=== PATIENT | male | born 1960 | race Caucasian/White ===

== ENCOUNTER → 2016-09-18 | Outpatient (CLI) | payer MEDICARE ==
[~2016-09-18] MED LIST: ALDACTONE 25MG25 MG PO; INDERAL LA120 MG PO; METHADONE HYDRO10 MG PO; MS CONTIN60 MG PO; VOLTAREN-XR100 M1 PO
[2016-09-18 14:40] VITALS: BP 122/85
== END ==
LOC: AMSURD 14:06
DX: Z86.39 Personal history of other endocrine, nutritional and metabolic disease (principal); Z12.5 Encounter for screening for malignant neoplasm of prostate; E78.2 Mixed hyperlipidemia

== ENCOUNTER → 2016-10-14 | Outpatient (CLI) | payer MEDICARE ==
[2016-09-18 14:40] VITALS: BP 122/85
== END ==
LOC: LAB 08:34
DX: E29.1 Testicular hypofunction (principal)

== ENCOUNTER → 2017-09-23 | Outpatient (CLI) | payer MEDICARE ==
[2016-09-18 14:40] VITALS: BP 122/85
[2017-09-23 11:42] LABS: EOS # 0.1 (0.04-0.40); EOS % 1.2 % (0.0-4.0); HEMATOCRIT 46.2 % (42.0-52.0); HEMOGLOBIN 15.9 g/dL (13.5-18.0); LYMPH# 2.2 (1.50-4.00); MEAN CELL VOLUME 85 fl (78-100); MEAN CORPUSCULAR HEMOGLOBIN 29 pg (27-31); MEAN CORPUSCULAR HGB CONC 34 g/dL (33-37); MEAN PLATELET VOLUME 9.1 fl (7.4-10.4); MONO # 0.6 (0.20-0.80); NEU # 2.8 (1.40-6.50); PLATELET COUNT 303 K/mm3 (130-400); RED BLOOD COUNT 5.44 M/mm3 (4.20-5.60); RED CELL DISTRIBUTION WIDTH 12.8 % (11.5-14.5); WHITE BLOOD COUNT 5.7 K/mm3 (4.8-10.8)
[2017-09-23 11:54] LABS: ALBUMIN 4.2 g/dL (3.5-5.0); CALCIUM 9.4 mg/dL (8.4-10.2); POTASSIUM 4.5 mmol/L (3.6-5.0); TOTAL BILIRUBIN 0.6 mg/dL (0.2-1.3); TOTAL PROTEIN 7.9 g/dL (6.3-8.2)
[2017-09-23 12:07] LABS: URINE COLOR YELLOW
[2017-09-23 12:08] LABS: URINE APPEARANCE CLEAR; URINE BILIRUBIN NEGATIVE (NEGATIVE); URINE BLOOD TRACE (NEGATIVE); URINE KETONE NEGATIVE (NEGATIVE); URINE NITRATE NEGATIVE (NEGATIVE); URINE PROTEIN(semi-quant) NEGATIVE (NEGATIVE); URINE UROBILINOGEN NORMAL (NORMAL); URINE WBC 0-1 /hpf (0-3)
[2017-09-23 12:48] LABS: ERYTHROCYTE SEDIMENTATION RATE 1 mm/hr (0-20)
[2017-09-23 12:59] LABS: URINE LEUKOCYTE ESTERASE NEGATIVE (NEGATIVE)
[2017-09-24 03:44] LABS: TESTOSTERONE 412 ng/dL (221-716)
== END ==
LOC: LAB 10:53
PROVIDERS: Internal Medicine
DX: Z86.39 Personal history of other endocrine, nutritional and metabolic disease (principal); E78.2 Mixed hyperlipidemia; Z12.5 Encounter for screening for malignant neoplasm of prostate

== ENCOUNTER → 2018-09-28 | Outpatient (CLI) | payer MEDICARE ==
[2016-09-18 14:40] VITALS: BP 122/85
[2018-09-28 08:36] LABS: URINE WBC 0 /hpf (0-3)
[2018-09-28 08:58] LABS: HEMATOCRIT 45.2 % (42.0-52.0); HEMOGLOBIN 15.3 g/dL (13.5-18.0); MEAN CELL VOLUME 87 fl (78-100); MEAN CORPUSCULAR HEMOGLOBIN 30 pg (27-31); MEAN CORPUSCULAR HGB CONC 34 g/dL (33-37); MEAN PLATELET VOLUME 8.8 fl (7.4-10.4); PLATELET COUNT 284 K/mm3 (130-400); RED BLOOD COUNT 5.18 M/mm3 (4.20-5.60); RED CELL DISTRIBUTION WIDTH 12.9 % (11.5-14.5); WHITE BLOOD COUNT 8.2 K/mm3 (4.8-10.8)
[2018-09-28 09:22] LABS: ALBUMIN 4.4 g/dL (3.5-5.0); CALCIUM 9.2 mg/dL (8.4-10.2); POTASSIUM 4.5 mmol/L (3.6-5.0); TOTAL BILIRUBIN 0.6 mg/dL (0.2-1.3); TOTAL PROTEIN 7.4 g/dL (6.3-8.2)
[2018-09-28 09:48] LABS: URINE APPEARANCE CLEAR; URINE BILIRUBIN NEGATIVE (NEGATIVE); URINE BLOOD TRACE (NEGATIVE); URINE COLOR YELLOW; URINE GLUCOSE 50 mg/dL mg/dL (NEGATIVE); URINE KETONE NEGATIVE (NEGATIVE); URINE LEUKOCYTE ESTERASE NEGATIVE (NEGATIVE); URINE MUCUS PRESENT (NOT PRESENT); URINE NITRATE NEGATIVE (NEGATIVE); URINE PROTEIN(semi-quant) TRACE mg/dL (NEGATIVE); URINE UROBILINOGEN NORMAL (NORMAL)
[2018-09-28 10:42] LABS: ERYTHROCYTE SEDIMENTATION RATE 4 mm/hr (0-20); LYMPHOCYTE 32 % (20-51); MONOCYTE 8 % (3-10); NEUTROPHILS 60 % (42-75)
[2018-09-29 02:01] LABS: TESTOSTERONE 46 ng/dL (221-716)
== END ==
LOC: LAB 08:31
PROVIDERS: Internal Medicine
DX: Z12.11 Encounter for screening for malignant neoplasm of colon (principal); Z12.5 Encounter for screening for malignant neoplasm of prostate; Z86.39 Personal history of other endocrine, nutritional and metabolic disease; E78.2 Mixed hyperlipidemia

== ENCOUNTER → 2018-10-12 | Outpatient (CLI) | payer MEDICARE ==
[2016-09-18 14:40] VITALS: BP 122/85
== END ==
LOC: RAD 12:26
DX: R09.02 Hypoxemia (principal); R06.02 Shortness of breath; I70.90 Unspecified atherosclerosis; M89.8X8 Other specified disorders of bone, other site

== ENCOUNTER → 2019-01-10 | Outpatient (CLI) | payer MEDICARE ==
[2016-09-18 14:40] VITALS: BP 122/85
== END ==
LOC: LAB 14:29
DX: E03.9 Hypothyroidism, unspecified (principal)

== ENCOUNTER → 2019-08-05 | Outpatient (CLI) | payer MEDICARE ==
[2016-09-18 14:40] VITALS: BP 122/85
== END ==
LOC: LAB 12:05
DX: E03.4 Atrophy of thyroid (acquired) (principal)

== ENCOUNTER → 2019-12-14 | Outpatient (CLI) | payer MEDICARE ==
[2016-09-18 14:40] VITALS: BP 122/85
== END ==
LOC: CARDLAB 12-08 07:09 → CARDREHAB 14:42 → CARDLAB 14:49
DX: G47.33 Obstructive sleep apnea (adult) (pediatric) (principal)
CPT/HCPCS: G0399

== ENCOUNTER → 2020-02-17 | Outpatient (CLI) | payer MEDICARE ==
[2016-09-18 14:40] VITALS: BP 122/85
[2020-02-17 16:01] LABS: EOS # 0.1 (0.04-0.40); EOS % 1.6 % (0.0-4.0); HEMATOCRIT 43.9 % (42.0-52.0); LYMPH# 2.9 (1.50-4.00); MEAN CELL VOLUME 87 fl (78-100); MEAN CORPUSCULAR HEMOGLOBIN 30 pg (27-31); MEAN CORPUSCULAR HGB CONC 34 g/dL (33-37); MONO # 0.8 (0.20-0.80); NEU # 2.9 (1.40-6.50); PLATELET COUNT 266 K/mm3 (130-400); RED BLOOD COUNT 5.06 M/mm3 (4.20-5.60); RED CELL DISTRIBUTION WIDTH 12.7 % (11.5-14.5); WHITE BLOOD COUNT 6.7 K/mm3 (4.8-10.8)
[2020-02-17 16:05] LABS: POTASSIUM 4.8 mmol/L (3.5-5.1)
[2020-02-17 16:06] LABS: ALBUMIN 4.2 g/dL (3.5-5.0)
[2020-02-17 16:07] LABS: CALCIUM 9.1 mg/dL (8.3-10.5)
[2020-02-17 16:10] LABS: TOTAL BILIRUBIN 0.5 mg/dL (0.2-1.2)
[2020-02-17 16:31] LABS: URINE APPEARANCE CLEAR; URINE BILIRUBIN NEGATIVE (NEGATIVE); URINE BLOOD TRACE (NEGATIVE); URINE COLOR YELLOW; URINE GLUCOSE NEGATIVE (NEGATIVE); URINE KETONE NEGATIVE (NEGATIVE); URINE LEUKOCYTE ESTERASE NEGATIVE (NEGATIVE); URINE MUCUS PRESENT (NOT PRESENT); URINE NITRATE NEGATIVE (NEGATIVE); URINE PROTEIN(semi-quant) TRACE mg/dL (NEGATIVE); URINE UROBILINOGEN NORMAL (NORMAL)
[2020-02-17 16:59] LABS: ERYTHROCYTE SEDIMENTATION RATE 4 mm/hr (0-20)
== END ==
LOC: LAB 15:44
PROVIDERS: Internal Medicine
DX: Z12.5 Encounter for screening for malignant neoplasm of prostate (principal); Z12.11 Encounter for screening for malignant neoplasm of colon; E78.2 Mixed hyperlipidemia; Z86.39 Personal history of other endocrine, nutritional and metabolic disease

== ENCOUNTER → 2020-08-21 | Outpatient (CLI) | payer MEDICARE ==
[2016-09-18 14:40] VITALS: BP 122/85
[~2020-08-21] MED LIST changes: +CHLORASEPTIC MA30 ML MM; +CLONIDINE HYDR0.1 MG PO; +FLONASE ALLERG9.9 ML NS; +LEVOTHYROXINE0.05 MG PO; +QUETIAPINE FUMA50 MG PO; +SYMBICORT1 AE2 IH; +TESTOSTERONE75 GM TD; +ZITHROMAX Z PA250 MG PO
== END ==
LOC: LAB 13:40
DX: E11.9 Type 2 diabetes mellitus without complications (principal); E23.0 Hypopituitarism

== ENCOUNTER 2021-02-12 10:48 | Emergency (ER) | payer MEDICARE ==
[~2021-02-12] VITALS: Ht 180.3 cm; Wt 102.5 kg
[~2021-02-12 10:48] MED LIST changes: -CHLORASEPTIC MA30 ML MM; -CLONIDINE HYDR0.1 MG PO; -FLONASE ALLERG9.9 ML NS; -LEVOTHYROXINE0.05 MG PO; -QUETIAPINE FUMA50 MG PO; -SYMBICORT1 AE2 IH; -TESTOSTERONE75 GM TD; -ZITHROMAX Z PA250 MG PO
[2021-02-12] MEDS ORDERED: CLONIDINE HYDR0.1 MG PO (11:12)
[2021-02-12] MEDS ORDERED: QUETIAPINE FUMA50 MG PO (11:12)
[2021-02-12] MEDS ORDERED: SYMBICORT1 AE2 IH (11:13)
[2021-02-12] MEDS ORDERED: TESTOSTERONE75 GM TD (11:13)
[2021-02-12] MEDS ORDERED: LEVOTHYROXINE0.05 MG PO (11:14)
[2021-02-12 11:23] LABS: HEMATOCRIT 41.5 % (42.0-52.0); HEMOGLOBIN 14.2 g/dL (13.5-18.0); LYMPH# 1.17 (1.50-4.00); MEAN CELL VOLUME 87 fl (78-100); MEAN CORPUSCULAR HEMOGLOBIN 30 pg (27-31); MEAN CORPUSCULAR HGB CONC 34 g/dL (33-37); MONO # 0.96 (0.20-0.80); NEU # 5.02 (1.40-6.50); PLATELET COUNT 213 K/mm3 (130-400); RED BLOOD COUNT 4.77 M/mm3 (4.20-5.60); RED CELL DISTRIBUTION WIDTH 11.9 % (11.5-14.5); WHITE BLOOD COUNT 7.2 K/mm3 (4.8-10.8)
[2021-02-12 11:33] LABS: ALBUMIN 3.9 g/dL (3.5-5.0); SODIUM 129 mmol/L (136-145)
[2021-02-12 11:34] LABS: CALCIUM 9.3 mg/dL (8.3-10.5)
[2021-02-12 11:35] LABS: GLUCOSE 253 mg/dL (75-110); TOTAL PROTEIN 7.1 g/dL (6.4-8.3)
[2021-02-12 11:36] LABS: CARBON DIOXIDE 19 mmol/L (22-29)
[2021-02-12 11:37] LABS: TOTAL BILIRUBIN 1.4 mg/dL (0.2-1.2)
[2021-02-12 11:41] LABS: AST-SGOT 19 U/L (5-34)
[2021-02-12 11:42] LABS: ALT/SGPT 22 U/L (0-55)
[2021-02-12 11:44] LABS: URINE APPEARANCE CLEAR; URINE BILIRUBIN NEGATIVE (NEGATIVE); URINE BLOOD 50 ery/uL (NEGATIVE); URINE COLOR DARK YELLOW; URINE KETONE SMALL (NEGATIVE); URINE LEUKOCYTE ESTERASE NEGATIVE (NEGATIVE); URINE NITRATE NEGATIVE (NEGATIVE); URINE PROTEIN(semi-quant) TRACE mg/dL (NEGATIVE); URINE UROBILINOGEN NORMAL (NORMAL); URINE WBC 0-1 /hpf (0-3)
[2021-02-12 11:56] LABS: TROPONIN-I < 0.03 ng/mL (<0.030)
[2021-02-12 12:02] LABS: D-DIMER 0.5 mg/L FEU (0.15-0.50)
[2021-02-12] MEDS ORDERED: CHLORASEPTIC MA30 ML MM (13:35)
[2021-02-12] MEDS ORDERED: FLONASE ALLERG9.9 ML NS (13:35)
[2021-02-12] MEDS ORDERED: ZITHROMAX Z PA250 MG PO (13:35)
[2021-02-12 13:50] VITALS: BP 140/87
== END 2021-02-12 13:50 | disposition home or self-care (01) ==
LOC: ED 10:48
PROVIDERS: Physician Assistant
DX: J32.9 Chronic sinusitis, unspecified (principal); G89.29 Other chronic pain; M54.9 Dorsalgia, unspecified; M54.2 Cervicalgia; E03.9 Hypothyroidism, unspecified; J44.9 Chronic obstructive pulmonary disease, unspecified; I10 Essential (primary) hypertension; F41.9 Anxiety disorder, unspecified; E78.5 Hyperlipidemia, unspecified; E66.9 Obesity, unspecified; F32.9 Major depressive disorder, single episode, unspecified; E11.9 Type 2 diabetes mellitus without complications; Z20.822 Contact with and (suspected) exposure to COVID-19; Z79.899 Other long term (current) drug therapy; Z79.51 Long term (current) use of inhaled steroids; Z79.890 Hormone replacement therapy; Z68.31 Body mass index [BMI] 31.0-31.9, adult
CPT/HCPCS: J7030

== ENCOUNTER → 2021-07-22 | Outpatient (CLI) | payer MEDICARE ==
[~2021-07-22] MED LIST changes: +CHLORASEPTIC MA30 ML MM; +CLONIDINE HYDR0.1 MG PO; +FLONASE ALLERG9.9 ML NS; +LEVOTHYROXINE0.05 MG PO; +QUETIAPINE FUMA50 MG PO; +SYMBICORT1 AE2 IH; +TESTOSTERONE75 GM TD; +ZITHROMAX Z PA250 MG PO
[2021-07-22 16:43] LABS: BASO # 0.02 K/mm3 (0.02-0.10); EOS # 0.12 K/mm3 (0.04-0.40); EOS % 2.1 % (0.0-4.0); HEMATOCRIT 44.2 % (42.0-52.0); HEMOGLOBIN 15.1 g/dL (13.5-18.0); LYMPH# 2.47 K/mm3 (1.50-4.00); MEAN CELL VOLUME 86 fl (78-100); MEAN CORPUSCULAR HEMOGLOBIN 29 pg (27-31); MEAN CORPUSCULAR HGB CONC 34 g/dL (33-37); MEAN PLATELET VOLUME 8.8 fl (7.4-10.4); MONO # 0.59 K/mm3 (0.20-0.80); NEU # 2.43 K/mm3 (1.40-6.50); PLATELET COUNT 250 K/mm3 (130-400); RED BLOOD COUNT 5.14 M/mm3 (4.20-5.60); RED CELL DISTRIBUTION WIDTH 12.1 % (11.5-14.5); WHITE BLOOD COUNT 5.6 K/mm3 (4.8-10.8)
[2021-07-22 16:52] LABS: ALBUMIN 4.2 g/dL (3.5-5.0); POTASSIUM 4.3 mmol/L (3.5-5.1)
[2021-07-22 16:57] LABS: TOTAL BILIRUBIN 1.5 mg/dL (0.2-1.2)
[2021-07-22 17:01] LABS: MAGNESIUM 2.14 mg/dL (1.60-2.60)
== END ==
LOC: LAB 16:31
PROVIDERS: Internal Medicine
DX: I10 Essential (primary) hypertension (principal); E78.2 Mixed hyperlipidemia; E11.9 Type 2 diabetes mellitus without complications; E03.9 Hypothyroidism, unspecified; K90.9 Intestinal malabsorption, unspecified

== ENCOUNTER → 2021-08-06 | Outpatient (CLI) | payer MEDICARE | LOC: LAB 15:00 | DX: E23.0 Hypopituitarism (principal); M47.812 Spondylosis without myelopathy or radiculopathy, cervical region; M60.9 Myositis, unspecified; K90.9 Intestinal malabsorption, unspecified; E11.9 Type 2 diabetes mellitus without complications; E78.2 Mixed hyperlipidemia; I10 Essential (primary) hypertension; E03.9 Hypothyroidism, unspecified; F41.8 Other specified anxiety disorders; F11.23 Opioid dependence with withdrawal ==

== ENCOUNTER → 2023-05-21 | Outpatient (CLI) | payer MEDICARE ==
[2023-05-21 16:14] LABS: URINE WBC 0 /hpf (0-3)
[2023-05-21 16:39] LABS: BASO # 0.03 K/mm3 (0.02-0.10); EOS # 0.04 K/mm3 (0.04-0.40); EOS % 0.7 % (0.0-4.0); HEMATOCRIT 44.3 % (42.0-52.0); HEMOGLOBIN 14.9 g/dL (13.5-18.0); LYMPH# 2.25 K/mm3 (1.50-4.00); MEAN CELL VOLUME 87 fl (78-100); MEAN CORPUSCULAR HEMOGLOBIN 29 pg (27-31); MEAN CORPUSCULAR HGB CONC 34 g/dL (33-37); MEAN PLATELET VOLUME 8.8 fl (7.4-10.4); MONO # 0.52 K/mm3 (0.20-0.80); PLATELET COUNT 265 K/mm3 (130-400); RED BLOOD COUNT 5.09 M/mm3 (4.20-5.60); RED CELL DISTRIBUTION WIDTH 12.1 % (11.5-14.5); WHITE BLOOD COUNT 5.5 K/mm3 (4.8-10.8)
[2023-05-21 16:49] LABS: CALCIUM 8.8 mg/dL (8.3-10.5)
[2023-05-21 16:52] LABS: TOTAL BILIRUBIN 0.6 mg/dL (0.2-1.2)
[2023-05-21 16:57] LABS: MAGNESIUM 2.15 mg/dL (1.60-2.60)
[2023-05-21 17:43] LABS: URINE APPEARANCE CLEAR; URINE COLOR YELLOW
[2023-05-21 17:44] LABS: URINE BILIRUBIN NEGATIVE (NEGATIVE); URINE BLOOD NEGATIVE (NEGATIVE); URINE KETONE NEGATIVE (NEGATIVE); URINE LEUKOCYTE ESTERASE NEGATIVE (NEGATIVE); URINE NITRATE NEGATIVE (NEGATIVE); URINE PROTEIN(semi-quant) TRACE (NEGATIVE); URINE UROBILINOGEN NORMAL (NORMAL)
[2023-05-21 17:51] LABS: ERYTHROCYTE SEDIMENTATION RATE 6 mm/hr (0-20)
[2023-05-22 18:40] LABS: CREATININE OTHER SOURCE 44 mg/dL (47-110)
[2023-05-22 19:27] LABS: HEPATITIS C VIRUS ANTIBODY Negative (Negative); TESTOSTERONE 420 ng/dL (221-716)
== END ==
LOC: LAB 15:48
PROVIDERS: Internal Medicine
DX: Z12.11 Encounter for screening for malignant neoplasm of colon (principal); Z12.5 Encounter for screening for malignant neoplasm of prostate; Z11.59 Encounter for screening for other viral diseases; F33.9 Major depressive disorder, recurrent, unspecified; K90.9 Intestinal malabsorption, unspecified; E78.2 Mixed hyperlipidemia; E11.9 Type 2 diabetes mellitus without complications; E03.9 Hypothyroidism, unspecified; E55.9 Vitamin D deficiency, unspecified; E23.0 Hypopituitarism; J44.9 Chronic obstructive pulmonary disease, unspecified

== ENCOUNTER → 2023-12-31 | Outpatient (CLI) | payer MEDICARE ==
[2023-12-31 17:07] LABS: ALBUMIN 4.1 g/dL (3.4-4.8)
[2023-12-31 17:08] LABS: CALCIUM 9.8 mg/dL (8.3-10.5)
[2023-12-31 17:09] LABS: TOTAL PROTEIN 7.1 g/dL (6.2-8.1)
[2023-12-31 17:11] LABS: TOTAL BILIRUBIN 0.6 mg/dL (0.2-1.2)
[2023-12-31 17:16] LABS: MAGNESIUM 2.1 mg/dL (1.60-2.60)
[2023-12-31 17:22] LABS: BASO # 0.03 K/mm3 (0.02-0.10); EOS # 0.07 K/mm3 (0.04-0.40); EOS % 1.1 % (0.0-4.0); HEMATOCRIT 45.7 % (42.0-52.0); HEMOGLOBIN 15.3 g/dL (13.5-18.0); LYMPH# 2.97 K/mm3 (1.50-4.00); MEAN CELL VOLUME 87 fl (78-100); MEAN CORPUSCULAR HEMOGLOBIN 29 pg (27-31); MEAN CORPUSCULAR HGB CONC 34 g/dL (33-37); MEAN PLATELET VOLUME 9.2 fl (7.4-10.4); MONO # 0.85 K/mm3 (0.20-0.80); NEU # 2.52 K/mm3 (1.40-6.50); PLATELET COUNT 267 K/mm3 (130-400); RED BLOOD COUNT 5.25 M/mm3 (4.20-5.60); RED CELL DISTRIBUTION WIDTH 11.7 % (11.5-14.5); WHITE BLOOD COUNT 6.5 K/mm3 (4.8-10.8)
== END ==
LOC: LAB 16:27
PROVIDERS: Internal Medicine
DX: I10 Essential (primary) hypertension (principal); E78.2 Mixed hyperlipidemia; E11.9 Type 2 diabetes mellitus without complications; E03.9 Hypothyroidism, unspecified

== ENCOUNTER → 2024-07-25 | Outpatient (CLI) | payer MEDICARE ==
[2024-07-25 16:07] LABS: BASO # 0.01 K/mm3 (0.02-0.10); EOS # 0.06 K/mm3 (0.04-0.40); EOS % 0.8 % (0.0-4.0); HEMATOCRIT 49.9 % (42.0-52.0); LYMPH# 3.05 K/mm3 (1.50-4.00); MEAN CELL VOLUME 86 fl (78-100); MEAN CORPUSCULAR HEMOGLOBIN 29 pg (27-31); MEAN CORPUSCULAR HGB CONC 34 g/dL (33-37); MEAN PLATELET VOLUME 8.9 fl (7.4-10.4); MONO # 0.77 K/mm3 (0.20-0.80); NEU # 4.03 K/mm3 (1.40-6.50); PLATELET COUNT 262 K/mm3 (130-400); RED BLOOD COUNT 5.83 M/mm3 (4.20-5.60); RED CELL DISTRIBUTION WIDTH 11.7 % (11.5-14.5); WHITE BLOOD COUNT 7.9 K/mm3 (4.8-10.8)
[2024-07-25 16:16] LABS: ALBUMIN 4.7 g/dL (3.4-4.8)
[2024-07-25 16:17] LABS: CALCIUM 9.9 mg/dL (8.3-10.5)
[2024-07-25 16:20] LABS: TOTAL BILIRUBIN 1.3 mg/dL (0.2-1.2)
[2024-07-25 16:25] LABS: MAGNESIUM 2.08 mg/dL (1.60-2.60)
[2024-07-25 16:28] LABS: URINE APPEARANCE CLEAR (CLEAR); URINE BILIRUBIN NEGATIVE (NEGATIVE); URINE BLOOD NEGATIVE (NEGATIVE); URINE COLOR YELLOW (YELLOW); URINE GLUCOSE NEGATIVE (NEGATIVE); URINE KETONE NEGATIVE (NEGATIVE); URINE LEUKOCYTE ESTERASE NEGATIVE (NEGATIVE); URINE MUCUS PRESENT (NOT PRESENT); URINE NITRATE NEGATIVE (NEGATIVE); URINE PROTEIN(semi-quant) NEGATIVE (NEGATIVE); URINE WBC 0-1 /hpf (0-3)
== END ==
LOC: LAB 15:49
PROVIDERS: Internal Medicine
DX: Z12.5 Encounter for screening for malignant neoplasm of prostate (principal); E03.9 Hypothyroidism, unspecified; E78.2 Mixed hyperlipidemia; E11.9 Type 2 diabetes mellitus without complications